=== PATIENT | female | born 1930 | race Caucasian/White ===

== ENCOUNTER 2017-01-24 11:17 | Emergency (ER) | payer MEDICARE ==
[2017-01-24 11:26] VITALS: BP 151/68; PULSE 67; RESP 18; TEMP 98
[2017-01-24] MEDS ORDERED: PROPARACAINE 0.5% OPHTH DROPS 15 ML BTL LEFT EYE STA (11:33)
--- NOTE | 2017-01-24 11:35 | ED ---
General Adult HPI - General Chief complaint: Eye Problems Stated complaint: eye pain Time Seen by Provider: 01/24/17 11:30 Source: patient, RN notes reviewed Mode of arrival: ambulatory Limitations: no limitations - History of Present Illness Initial comments: Patient 86-year-old female who presents emergency room today with a chief complaint of irritation to the left eye possible foreign body. She does admit that she's had some crusting over the eye this morning. States had some increased watery discharge. She does admit to a foreign body sensation to this upper Aspect underneath the eyelid. States that she was cutting some bushes a few days ago denies any specific injury or trauma but states started today with this irritation. Denies any other complaints symptoms. Patient denies any recent fever, chills, shortness of breath, chest pain, back pain, abdominal pain , nausea or vomiting, numbness or tingling, dysuria or hematuria, constipation or diarrhea, headaches, or any other complaints. - Related Data Home Medications Medication Instructions Recorded Confirmed amLODIPine [Norvasc] 5 mg PO DAILY 08/27/14 08/27/14 Previous Rx's Medication Instructions Recorded Tobramycin 0.3% Ophth Oint [Tobrex 1 applic BOTH EYES TID 7 Days 01/24/17 0.3% Ophth Oint] Allergies Allergy/AdvReac Type Severity Reaction Status Date / Time Penicillins Allergy Unknown Verified 01/24/17 11:27 Childhood Review of Systems ROS Statement: Those systems with pertinent positive or pertinent negative responses have been documented in the HPI. ROS Other: All systems not noted in ROS Statement are negative. Past Medical History Past Medical History: Hypertension History of Any Multi-Drug Resistant Organisms: None Reported Past Surgical History: Tonsillectomy Additional Past Surgical History / Comment(s): cataracts Past Psychological History: No Psychological Hx Reported Smoking Status: Former smoker Past Alcohol Use History: Rare Past Drug Use History: None Reported General Exam - General Exam Comments Initial Comments: General: The patient is awake and alert, in no distress, and does not appear acutely ill. Eye: Pupils are equal, round and reactive to light, extra-ocular movements are intact. No nystagmus. There is normal conjunctiva bilaterally. No signs of icterus. Ears, nose, mouth and throat: There are moist mucous membranes and no oral lesions. Neck: The neck is supple, there is no tenderness or JVD. Cardiovascular: There is a regular rate and rhythm. No murmur, rub or gallop is appreciated. Respiratory: Lungs are clear to auscultation, respirations are non-labored, breath sounds are equal. No wheezes, stridor, rales, or rhonchi. Musculoskeletal: Normal ROM, no tenderness. Strength 5/5. Sensation intact. Pulses equal bilaterally 2+. Neurological: A&O x 3. CN II-XII intact, There are no obvious motor or sensory deficits. Coordination appears grossly intact. Speech is normal. Skin: Skin is warm and dry and no rashes or lesions are noted. Psychiatric: Cooperative, appropriate mood & affect, normal judgment. Limitations: no limitations Course Vital Signs 01/24/17 11:23 Temperature 98.0 F Pulse Rate 67 Respiratory 18 Rate Blood Pressure 151/68 O2 Sat by Pulse 96 Oximetry Procedures - Procedures Initial comment: Left eye was anesthetized locally with proparacaine drops. This did relieve her symptoms. Left eye was then stained with fluorescein and checked with Wood' s lamp revealing no foreign body nor corneal abrasion. Lids everted Medical Decision Making - Medical Decision Making Patient feeling better after proparacaine drops in the emergency room. She does admit to some discharge and drainage coming from the left eye over the last 2 days after she's been working outside cutting some bushes. Patient will be treated for conjunctivitis placed on antibiotic drops. Given referral to head porter if symptoms are not improved to follow-up over the next 2 days. Advised return for any other concerns. Disposition Clinical Impression: Acute conjunctivitis Disposition: HOME SELF-CARE Condition: Good Instructions: Conjunctivitis (ED) Additional Instructions: Please use medication as discussed. Please follow-up with ophthalmology/family doctor in the next 2 days of symptoms have not improved. Please return to emergency room if the symptoms increase or worsen or for any other concerns. Prescriptions: Tobramycin 0.3% Ophth Oint [Tobrex 0.3% Ophth Oint] 1 applic BOTH EYES TID 7 Days Referrals: Brenton Rajput MD [Primary Care Provider] - 1-2 days Sourav Mcpherson MD [STAFF PHYSICIAN] - 1-2 days Time of Disposition: 11:48
== END 2017-01-24 12:02 | disposition home or self-care (01) ==
LOC: EC 11:17
DX: H10.32 Unspecified acute conjunctivitis, left eye (principal); I10 Essential (primary) hypertension; Z87.891 Personal history of nicotine dependence; Z79.899 Other long term (current) drug therapy; Z88.0 Allergy status to penicillin
CPT/HCPCS: 99283

== ENCOUNTER → 2018-08-09 | Outpatient (CLI) | payer MEDICARE ==
--- NOTE | 2018-08-09 11:50 | MR ---
EXAMINATION TYPE: MR knee LT wo con DATE OF EXAM: 08/09/2018 COMPARISON: None HISTORY: Pain in left knee TECHNIQUE: Multiplanar, multisequence imaging of the left knee is performed without IV contrast. FINDINGS: MEDIAL MENISCUS: Posterior horn of the medial meniscus appears attenuated, there is abnormal increase d signal within the meniscus, increased signal extends to the articular superior surface and undersur face. LATERAL MENISCUS: Anterior and posterior horns are intact without tear. CRUCIATE LIGAMENTS: The anterior and posterior cruciate ligaments are intact and unremarkable. COLLATERAL LIGAMENTS: The medial collateral ligament and lateral collateral ligament complex are inta ct and unremarkable. EXTENSOR MECHANISM: Visualized quadriceps and patellar tendons are intact. EFFUSION: Suprapatellar joint effusion is present. POPLITEAL CYST: No popliteal/malagon cyst. 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 BONE MARROW SIGNAL: Some reactive marrow signal changes present in the proximal tibia medially. OTHER: Subcutaneous edema noted in the prepatellar, soft tissues anterior to the patellar tendon. Ma rginal spurring present in the medial compartment. IMPRESSION: There is a complex tear suspected in the posterior horn the medial meniscus. Osteoarthritis. Joint ef fusion.
== END | disposition home or self-care (01) ==
LOC: RADMRIMAIN 08:34
PROVIDERS: ATTEND Orthopaedic Surgery
DX: M17.12 Unilateral primary osteoarthritis, left knee (principal)

== ENCOUNTER 2018-09-26 12:17 | Day surgery (SDC) | payer MEDICARE ==
[2018-09-19 10:10] VITALS: BMI 29.5
--- NOTE | 2018-09-25 18:56 | HP ---
HISTORY AND PHYSICAL DATE OF SURGERY: 09/26/2018 Maeve Muniz is an 88-year-old patient seen with progressive left knee pain. Treatment options were discussed with her. She elected to proceed with arthroscopy. Consent was obtained. Medical clearance was provided by Dr. Rajput. PAST MEDICAL HISTORY: Hypertension. PAST SURGICAL HISTORY: 1. Cataract surgery. 2. Tonsillectomy. DAILY MEDICATIONS: 1. Amlodipine. 2. Aspirin. 3. Metoprolol. ALLERGIES: PENICILLIN. SOCIAL HISTORY: She denies tobacco use. PHYSICAL EVALUATION OF THE LEFT KNEE: Range of motion is -3 to 120 degrees. Mild effusion. Tenderness, medial joint line. Positive medial Ron's. Ligaments stable. Hip rotation without pain. Distal neurovascular exam intact. RADIOGRAPHS: Radiographs of the left knee show mild osteoarthritis. An MRI of the left knee shows complex medial meniscal tear. IMPRESSION: 1. Internal derangement of left knee with meniscal tear. 2. Hypertension. PLAN: Left knee arthroscopy with partial meniscectomy and debridement. MMODL / IJN: [id number] /
[~2018-09-26 12:17] MED LIST: DEXAMETHASONE SOD PHOSPHATE 10 MG/ML 1 ML VIAL IV ONE; HYDROmorphone 0.5 MG/0.5 ML SYRINGE IVP PRN; LACTATED RINGERS 1,000 ML IV SCH; LIDOCAINE 1% 20 ML VIAL (10MG/ML) FOR IV START INTRADERMA PRN; MIDAZOLAM (PF) 2 MG/2 ML VIAL IV PRN; ONDANSETRON 4 MG/2 ML VIAL IVP ONE; SCOPOLAMINE 1.5MG/72HR PATCH TRANSDERM ONE; ceFAZolin 1,000 MG in DEXTROSE/WATER 1 50ML.BAG IVPB ONE
[2018-09-26] MEDS ORDERED: MIDAZOLAM 2 MG/2 ML VIAL ONE (13:59)
[2018-09-26] MEDS ORDERED: BUPIVACAINE-EPI 0.5%-1:200,000 10 ML VIAL INTRAARTIC ONE (14:46)
[2018-09-26 15:01] VITALS: TEMP 97.8
--- NOTE | 2018-09-26 15:05 | P.OP ---
Date of Procedure: 09/26/18 Preoperative Diagnosis: Internal derangement left knee Postoperative Diagnosis: 1. Tear medial meniscus left knee 2. Grade 2 chondromalacia medial femoral condyle left knee 3. Reactive synovitis medial and suprapatellar compartments left knee Procedure(s) Performed: 1. Arthroscopic partial medial meniscectomy left knee 2. Arthroscopic chondroplasty medial femoral condyle left knee 3. Arthroscopic partial synovectomy medial and suprapatellar compartments left knee Anesthesia: local, spinal Surgeon: Flynn Rizvi Estimated Blood Loss (ml): 7 Pathology: none sent Condition: stable Disposition: PACU Indications for Procedure: 88-year-old patient seen with progressive left knee pain. After treatment options were discussed, she elected to proceed with arthroscopy. Operative Findings: See description of procedure Description of Procedure: Patient was taken to the operative suite. Patient underwent a general anesthetic by the department of anesthesia. Patient was given preoperative antibiotics. The left lower extremity was placed in a well-padded arthroscopic leg drummond. The left leg was prepped and draped in the normal sterile orthopedic fashion. A lateral parapatellar and suprapatellar incision was made. Trochars were inserted. Arthroscopy was initiated. Suprapatellar pouch revealed diffuse thick reactive synovitis. The patellofemoral joint appeared to articulate congruently. There was grade 1 chondromalacia of the patellofemoral joint. The scope was guided into the medial gutter. No loose bodies or plica were identified. The scope was then guided into the medial compartment. A med ial parapatellar incision was made. Trocar inserted followed by probe. There was a complex tear involving the posterior horn and midbody of the medial meniscus. There were grade 2 chondromalacia changes of the medial femoral condyle with some small osteochondral tears present. There was some thick reactive synovitis anteriorly. I performed a partial medial meniscectomy getting down to stable meniscal tissue. I performed a chondroplasty of the medial femoral condyle getting down to stable osteochondral chondral tissue. I performed a partial synovectomy decompressing the thick reactive synovitis. The residual meniscus was stable. The residual osteochondral surface was stable. There was good decompression of the synovitis. Scope and probe were then guided into the intercondylar notch. Cruciates were identified, probed and found to be stable. The scope and probe were then guided into lateral compartment. Lateral meniscus was found to be stable. The osteochondral surface reveals some mild chondromalacia. There was no significant synovitis. The scope was in guided back into the suprapatellar compartment. I introduced a motorized shaver into the suprapatellar compartment. I debrided some piecemeal fragments of meniscus I encountered. I performed a partial synovectomy decompressing the thick reactive synovitis in the suprapatellar compartment. The shaver was removed. I took one more look on the entire knee, no residual debris. Instruments were now removed from the joint. The joint was infiltrated with .25% Marcaine. Steri- Strips were applied to the portal sites. Sterile dressings were applied. The patient was placed into a RANDEE hose. No tourniquet was utilized. The patient was awakened, transferred to a bed and taken to recovery stable satisfactory c ondition.
[2018-09-26 15:19] VITALS: RESP 18
[2018-09-26 15:58] VITALS: BP 142/80; PULSE 79
== END 2018-09-26 16:30 | disposition home or self-care (01) ==
LOC: OR 12:17
PROVIDERS: ATTEND Orthopaedic Surgery
DX: S83.232A Complex tear of medial meniscus, current injury, left knee, initial encounter (principal); M94.262 Chondromalacia, left knee; M65.9 Synovitis and tenosynovitis, unspecified; I10 Essential (primary) hypertension; Z79.82 Long term (current) use of aspirin; Z79.899 Other long term (current) drug therapy; Z88.0 Allergy status to penicillin
CPT/HCPCS: 29881; J2250; J1100; J2405; J0690

== ENCOUNTER → 2021-08-03 | Outpatient (CLI) | payer MEDICARE ==
--- NOTE | 2021-08-04 05:17 | CT ---
EXAMINATION TYPE: CT brain wo con DATE OF EXAM: 08/03/2021 HISTORY: memory loss CT DLP: 1017.9 mGycm. Automated Exposure Control for Dose Reduction was Utilized. TECHNIQUE: CT scan of the head is performed without contrast. COMPARISON: CT brain August 27, 2014. FINDINGS: There is no acute intracranial hemorrhage or midline shift identified. There is mild-to-m oderate diffuse ventricular and sulcal prominence consistent with diffuse age-related cerebral atroph y. There is moderate low-attenuation in the periventricular white matter consistent with chronic sma ll vessel ischemic change. Vascular calcification distal internal carotid arteries redemonstrated. Th e globes are intact and the visualized sinuses are clear. IMPRESSION: No acute intracranial hemorrhage or midline shift. There is mild to moderate diffuse ce rebral atrophy and moderate chronic small vessel ischemic change redemonstrated. No significant matthews ge from prior.
== END ==
LOC: RADCTMAIN 16:37
PROVIDERS: ATTEND Internal Medicine
DX: R41.3 Other amnesia (principal)
CPT/HCPCS: 70450

== ENCOUNTER → 2021-08-18 | Outpatient (CLI) | payer MEDICARE ==
--- NOTE | 2021-08-18 09:10 | CT ---
EXAMINATION TYPE: CT abdomen wo con DATE OF EXAM: 08/18/2021 COMPARISON: None available HISTORY: Elevated bilirubin, elevated alkaline phosphate level CT DLP: 437 mGycm Automated exposure control for dose reduction was used. TECHNIQUE: Helical acquisition of images was performed from the lung bases through the top of iliac crest to include entire abdomen. CONTRAST: Performed with Oral Contrast and without IV contrast. FINDINGS: Large hiatal hernia. The hernial neck measures 3.3 x 3.9 cm. The hernial sac contains almost the enti re stomach seen posterior to the heart, not completely included in the scan. Portion of the transvers e colon is tethered the towards the hernial neck yet not protruding into the chest. No convincing idalia dence of gastric obstruction. Suspected second part of the duodenum diverticulum measuring 2.2 cm, wi th another diverticulum arising from the third part of the duodenum. Unremarkable visualized portion of the small bowel. Scattered uncomplicated colonic diverticulosis. The pelvic small and large bowel are not included in the scan. No definite hepatic focal lesion by this nonenhanced CT scan. Subtle faint hyperdensities are seen in the gallbladder, possibly representing sludge or tiny calculi. No signs of acute cholecystitis. No d ilated central intrahepatic biliary tree with the CBD measures 5 mm. 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 appearance of the spleen. 15 mm cyst is seen arising from the inferior aspect of the distal pancreatic body, possibly represent ing an IPMN, for further MRI assessment. Grossly unremarkable remainder of the pancreas. Unremarkable adrenals. Bilateral renal hypodensities, likely representing renal cysts, suboptimally assessed by t his CT scan. Scattered arterial atherosclerotic calcifications. No upper abdominal lymphadenopathy or ascites. Pablo ateral basal thin pulmonary atelectasis. The heart is displaced anteriorly by the large hiatal hernia . Dextroscoliosis of the upper lumbar spine with osteopenia and marked degenerative changes of the lo wer thoracic and lumbar spine. IMPRESSION: 1. No evidence of intra or extrahepatic biliary tree dilatation. Please note that a radiolucent nonob structing CBD stone cannot be excluded by this CT scan. 2. Faint hyperdensities within the gallbladder which could represent sludge or calculi, for correlati on ultrasound results. No signs of acute cholecystitis. 3. 15 mm distal pancreatic body cyst as described above, possibly representing an IPMN, for further M RI assessment. 4. Large hiatal hernia with mass effect in the chest as described above. Recommend surgical consultat ion. Other incidental findings as described above.
== END | disposition home or self-care (01) ==
LOC: RADCTMAIN 07:32
PROVIDERS: ATTEND Internal Medicine
DX: K44.9 Diaphragmatic hernia without obstruction or gangrene (principal); K86.2 Cyst of pancreas; K82.8 Other specified diseases of gallbladder; K57.10 Diverticulosis of small intestine without perforation or abscess without bleeding; J98.11 Atelectasis; I70.90 Unspecified atherosclerosis
CPT/HCPCS: 74150

== ENCOUNTER → 2021-09-08 | Outpatient (CLI) | payer MEDICARE ==
--- NOTE | 2021-09-08 09:07 | US ---
EXAMINATION TYPE: US gallbladder DATE OF EXAM: 09/08/2021 COMPARISON: NONE CLINICAL HISTORY: K80.20 CALCULUS OF GALLBLADDER. Hx of gallstones EXAM MEASUREMENTS: Liver Length: 13 cm Gallbladder Wall: .2 cm CBD: .4 cm Right Kidney: 8.8 x 3.9 x 3.5 cm Pancreas: Obscured by bowel gas Liver: Increased attenuation Gallbladder: Multiple stones seen. Evidence for sonographic Coronel's sign: No CBD: wnl Right Kidney: wnl IMPRESSION: 1. Cholelithiasis. 2. Fatty hepatic infiltration.
== END | disposition home or self-care (01) ==
LOC: RADUSWWP 08:18
PROVIDERS: ATTEND Internal Medicine
DX: K80.20 Calculus of gallbladder without cholecystitis without obstruction (principal); K76.0 Fatty (change of) liver, not elsewhere classified
CPT/HCPCS: 76705